=== PATIENT | female | born 1985 | race Caucasian/White ===

== ENCOUNTER 2022-07-22 14:30 | Outpatient (CLI) | payer BC, SELFPAY ==
[2022-07-22 16:36] LABS: Albumin* 5.2 g/dL (3.3-5.0); Chloride* 102 mmol/L (96-114)
[2022-07-22 16:37] LABS: Potassium* 3.8 mmol/L (3.6-5.1); Sodium* 140 mmol/L (135-149)
[2022-07-22 16:39] LABS: Aspartate Amino Transferase* 17 U/L (12-35); Bilirubin Total* 0.4 mg/dL (0.1-1.5); Blood Urea Nitrogen* 18 mg/dL (5-24); Carbon Dioxide* 26 mmol/L (20-32); Cholesterol* 159 mg/dL (90-199); Creatinine* 0.8 mg/dL (0.5-1.5); Estimated Glomerular Filt Rate 98 ml/min; Total Protein* 7.9 g/dL (6.0-8.3)
[2022-07-22 16:40] LABS: Alanine Aminotransferase* 11 U/L (4-35); Alkaline Phosphatase* 44 U/L (40-150); Glucose* 106 mg/dL (60-115); HDL Cholesterol* 51 mg/dL (>=50); LDL Cholesterol Calculated 93 mg/dL (<100); Triglycerides* 76 mg/dL (40-149)
[2022-07-22 17:45] LABS: Vitamin B12* 391 pg/mL (243-894)
== END 2022-07-22 14:31 | disposition home or self-care (01) ==
PROVIDERS: PCP Family Medicine; Visit Provider Family Medicine
DX: R53.83 Other fatigue (principal); Z01.419 Encounter for gynecological examination (general) (routine) without abnormal findings; Z13.6 Encounter for screening for cardiovascular disorders
CPT/HCPCS: 80053; 80061; 82607; 84443